=== PATIENT | male | born 1990 | race Caucasian/White ===

== ENCOUNTER 2019-10-13 15:46 | Emergency (ER) | payer OTHER ==
[~2019-10-13] VITALS: Ht 154.9 cm; Wt 81.7 kg
[~2019-10-13 15:46] MED LIST: Prednisone20 MG PO; Vibramycin100 MG PO
[2019-10-13] MEDS ORDERED: IBU800 M1 PO (16:49)
[2019-10-13] MEDS ORDERED: META800 PO ×2 (16:49→17:35)
[2019-10-13] MEDS ORDERED: IBUP800 PO (17:35)
== END 2019-10-13 17:22 | disposition home or self-care (01) ==
LOC: ER 15:46
DX: S39.012A Strain of muscle, fascia and tendon of lower back, initial encounter (principal); S29.012A Strain of muscle and tendon of back wall of thorax, initial encounter; X58.XXXA Exposure to other specified factors, initial encounter
CPT/HCPCS: 72070; 72100